=== PATIENT | female | born 1995 | race Caucasian/White ===

== ENCOUNTER 2021-07-09 14:00 | Outpatient (RCR) | payer OTHER, SELFPAY ==
--- NOTE | 2021-06-30 10:47 | STOPEVAL ---
Thank you for referring Sarai Dixon to [facility].? The patient is scheduled to be seen for therapy? 1x/week for 4 weeks. Please review, sign, date and return this plan of care KAYLIE. I agree with and certify that the following plan of care is medically necessary. 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 She reports that she even wondered if she had asthma due to the feeling of the need to catch her breath. Patient reports that occasionally, she does not feel as if she has enough air, almost gasping for air. Patient reports that she had COVID in February of 2021 and that her breathing symptoms began around that time. About one month later, at the end of March, patient developed a rapid heart rate and became very dizzy and was then hospitalized although her test results at that time were generally normal. She was sent to a lunch truck driver who diagnosed with POTS, postural orthostatis tachycardia syndrome, characterized as heart rate quickly increasing when sitting to standing, and MCAS (mast cell activation syndrome); patient reports this is like an allergic reaction to certain foods and multiple things such as things in the air and stress. She reports that food is the worse trigger fo
--- NOTE | 2021-07-17 16:09 | PCSTNOTE ---
Admitting Provider: Attending Provider: Carlos Dya MD Patient:Sarai Dixon Date of :1995 Patient has not returned for any further treatments since 07/02/2021, therefore she will be discharged at this time. Patient?s initial visit was on 06/25/2021 12:30 with complaints of air hunger and becoming short of breath when speaking. Patient returned for one treatment session for a total of two visits. The goals for instruction of breathing and respiration/phonation coordination techniques were met at first treatment session however her ability to sustain ah sound to 15 seconds could not be further assessed due to noncompliance with treatment frequency. Therapist contacted the patient the week of 07/14 due to missed visit last week with no contact to cancel, and then not being on the schedule to return. Therapist requested patient contact us to let therapist know if she requested discharge or wanted to be placed on the schedule and no contact was made. Thank you for referring this patient to [facility]. Please review, sign, date and return this discharge summary KAYLIE. I have been updated about the patient's current status and I agree with discharge from the above service at this time. Referring Physician Date
== END 2021-07-18 11:05 | disposition home or self-care (01) ==
LOC: ANHST 14:00
PROVIDERS: Visit Provider Otolaryngology
DX: J38.3 Other diseases of vocal cords (principal)
CPT/HCPCS: 92507; 92524

== ENCOUNTER 2023-05-20 08:22 | Emergency (ER) | payer OTHER, SELFPAY ==
[2023-05-20] VITALS (15 sets, daily range): BP systolic 120–157; BP diastolic 82–96; PULSE 87–138; RESP 14–29; TEMP 36.6–37.3; O2SAT 89–100
--- NOTE | ~2023-05-20 | XR_ITS ---
EXAMINATION: XR chest 2V DATE: 05/20/2023 10:27 INDICATION: Shortness of breath TECHNIQUE: PA and lateral views of the chest are obtained. COMPARISON: None available FINDINGS: There are minimal bibasilar airspace opacities. No pleural effusion or pneumothorax. The ca rdiomediastinal silhouette is normal. The visualized bones and soft tissues are unremarkable. IMPRESSION: 1. Minimal bibasilar airspace opacities, consistent with atelectasis versus pneumonia. Reviewed, dictated and finalized at location F. IMPRESSION: 1. Minimal bibasilar airspace opacities, consistent with atelectasis versus pne umonia.
--- NOTE | 2023-05-20 08:26 | ECG_ITS ---
Measurements Intervals [place] Rate: 123 P: 52 TN: 133 QRS: 59 QRSD: 87 T: 24 QT: 302 QTc: 434 Interpretive Statements SINUS TACHYCARDIA LOW QRS VOLTAGE IN PRECORDIAL LEADS BORDERLINE ST-T WAVE ABNORMALITY- ANT/INFN LEADS BASELINE WANDER- II, III, AVF ABNORMAL ECG NO PREVIOUS ECG AVAILABLE FOR COMPARISON Electronically Signed On 05-20-2023 8:36:24 CDT by Antony Adrian D.O.
--- NOTE | 2023-05-20 09:41 | ED.ARRPALP ---
HPI - Arrhythmia/Palpitations General Chief Complaint: Arrhythmia/Palpitations Stated Complaint: sob, fast HR Time Seen by Provider: 05/20/23 09:38 Source: patient Mode of arrival: ambulatory Limitations: no limitations History of Present Illness HPI narrative: Patient presents with palpitations and shortness of breath. She experiences this frequently and has had extensive workup diagnosed with POTS in March of 2021 after having COVID. Also diagnosed with mast cell activation syndrome. She has had an occasional cough the past few days which she attributed to allergies. She denies any chest pain or diaphoresis. She notes her heart rate was in the 160s home. Her last menstrual period was greater than 1 month ago but is notably irregular at baseline given PCOS. She has previously been on a beta-wild in [place] but then her heart rate experienced irregularities occasionally going low in the 40s occasionally 38 beats per minute and at other times running high thus no longer on these medications. She lost 70 lb and deemed back. She is pending an endocrinology referral/point as she had a positive ARABELLA test. She drinks a mixture of electrolytes in water daily. She has undergone wearing an event monitor once for approximately 48 hours, another time for approximately 7 days, another time for 30 days. At baseline her episodes last 5-15 minutes and they leave her fatigued and tired but she felt like symptoms were worse over the past 2 days. She has a sports writer through [facility]. PCP Dr saldivar in [place] Related Data Home Medications Medication Instructions Recorded Confirmed famotidine 20 mg tablet 20 mg PO DAILY 05/27/21 11/25/21 famotidine 20 mg tablet 20 mg PO DAILY 05/27/21 11/25/21 levalbuterol tartrate 45 2 inh inhalation Q6H 05/27/21 11/25/21 mcg/actuation aerosol inhaler montelukast 10 mg tablet 10 mg PO DAILY 05/27/21 11/25/21 cetirizine 10 mg capsule (Zyrtec) 10 mg PO DAILY PRN 11/25/21 11/25/21 buspirone 5 mg tablet mg PO 04/30/23 05/02/23 Allergies Allergy/AdvReac Type Severity Reaction Status Date / Time No Known Allergies Allergy Verified 05/20/23 08:29 [facility] Past Medical History Medical History ARABELLA positive Bruxism IBS (irritable bowel syndrome) Mast cell activation syndrome PCOS (polycystic ovarian syndrome) POTS (postural orthostatic tachycardia syndrome) Surgical History Surgical History History of colonoscopy History of esophagogastroduodenoscopy (EGD) Family History Family History Mother Lung cancer Hypertension Depression Anxiety COVID attributed to this in 2021 Sibling Depression Anxiety Social History Social History Smoking status: Never smoker Alcohol intake: never Substance use: never Exam Narrative: GENERAL: Well-appearing, well-nourished, and in no acute distress. HEAD: Normocephalic, atraumatic. EYES: Non injected, non icteric ENT: Nares clear, no rhinorrhea or epistaxis. NECK: Supple. CHEST: Clear to auscultation. No respiratory distress. HEART: Regular rate and rhythm though occasionally tachycardic. ABDOMEN: Soft, nondistended. EXTREMITIES: Normal range of motion. No edema. SKIN: Warm, dry, no rash. NEURO: No focal deficits. Alert and oriented x3. PSYCH: Normal mood and affect. Course Vital Signs Vital signs: Vital Signs Pulse Rate 129 H 05/20/23 08:28 Respiratory Rate 20 05/20/23 08:28 Blood Pressure 157/96 H 05/20/23 08:28 Pulse Oximetry 100 05/20/23 08:28 Temperature 98 F 05/20/23 12:07 Pulse Rate 93 05/20/23 12:07 Respiratory Rate 15 05/20/23 12:07 Blood Pressure 120/82 05/20/23 12:07 Pulse Oximetry 98 05/20/23 12:07 MDM - Arrhythmia/Palpitations MDM Narr
[2023-05-20] MEDS: SODIUM CHLORIDE 0.9% IV 1,000 ML 999 ML IV CONT (10:07)
[2023-05-20 10:27] LABS: Basophils Percent Auto 0.4 % (0.2-1.2); Eosinophils Percent Auto 0.3 % (0-4.4); Hematocrit 43.4 % (37.0-47.0); Hemoglobin 14.7 g/dL (12.0-15.0); Immature Granulocyte Absolute 0.02 K/mm3 (0.00-0.031); Immature Granulocyte Percent A 0.3 % (0-0.5); Lymphocytes Absolute Auto 1.09 K/mm3 (0.9-3.2); Lymphocytes Percent Auto 14.5 % (18.3-44.2); Mean Corpuscular HGB Conc 33.9 g/dl (32-36); Mean Corpuscular Hemoglobin 29.7 pg (26-34); Mean Corpuscular Volume 87.7 fl (80-100); Mean Platelet Volume 11.5 fl (7.4-10.4); Monocytes Absolute Auto 0.3 K/mm3 (0.1-0.6); Monocytes Percent Auto 4.2 % (2.6-8.5); Neutrophils Absolute Auto 6.1 K/mm3 (1.3-6.7); Neutrophils Percent Auto 80.3 % (45.5-73.1); Platelet Count Result 191 k/mm3 (150-375); Red Blood Count 4.95 M/mm3 (4.2-5.4); White Blood Count 7.5 K/mm3 (4.5-10.0)
[2023-05-20 10:32] LABS: Alanine Aminotransferase 17 U/L (6-35); Albumin Level 4.5 g/dL (3.5-5.1); Alkaline Phosphatase 111 U/L (38-126); Anion Gap 7 mmol/L (4-12); Aspartate Amino Transferase 21 U/L (14-36); Bilirubin,Total 1.5 mg/dL (0.2-1.3); Blood Urea Nitrogen 6 mg/dL (7-17); Calcium 9.4 mg/dL (8.4-10.2); Carbon Dioxide 24 mmol/L (22-30); Chloride 108 mmol/L (98-107); Estimated CRCL calculation 115 ml/min; Estimated Glomerular Filt Rate > 60; Glucose 109 mg/dL (65-110); Magnesium 2.1 mg/dL (1.6-2.3); Sodium 139 mmol/L (137-145)
[2023-05-20 10:47] LABS: D Dimer 0.29 ug/mL (<0.48)
[2023-05-20 11:06] LABS: Add Urine Microscopic? NO; Appearance Urine Clear (Clear); Bilirubin Urine Negative (Negative); Blood Urine Negative (Negative); Color Urine Yellow (Yellow); Glucose Urine UA Negative (Negative); Ketones Urine Negative (Negative); Leukocyte Esterase Ur Negative LEU/UL (Negative); Nitrate Urine Negative (Negative); Protein Urine Negative (Negative); Specific Grav Ur 1.015 (1.001-1.035); Urobilinogen Urine 0.2 mg/dL (<2.0)
[2023-05-20 11:18] LABS: Influenza A QL RT-PCR Negative (Negative); Influenza B QL RT-PCR Negative (Negative); RSV RNA, RT-PCR Negative (Negative); SARS-CoV-2 RNA PCR Negative (Negative)
== END 2023-05-20 12:15 | disposition home or self-care (01) ==
PROVIDERS: Emergency Provider Student in an Organized Health Care Education/Training Program
DX: J18.9 Pneumonia, unspecified organism (principal); G90.A Postural orthostatic tachycardia syndrome [POTS]; E28.2 Polycystic ovarian syndrome; K58.9 Irritable bowel syndrome, unspecified; D89.40 Mast cell activation, unspecified; Z86.16 Personal history of COVID-19; R00.0 Tachycardia, unspecified; R94.31 Abnormal electrocardiogram [ECG] [EKG]
CPT/HCPCS: 36415; 71046; 80053; 81003; 81025; 83735; 84443; 85025; 85380; 87637; 93005; 96360; 99283; J7030

== ENCOUNTER 2023-05-24 11:22 | Emergency (ER) | payer OTHER, SELFPAY ==
--- NOTE | ~2023-05-24 | XR_ITS ---
EXAMINATION: XR chest 2V DATE: 05/24/2023 12:37 INDICATION: Shortness of breath. TECHNIQUE: Frontal and lateral views of the chest were obtained. COMPARISON: Chest 2 views 05/20/2023 FINDINGS: There is no pneumonia, pleural effusion, or pneumothorax. The heart size is normal. IMPRESSION: 1. No acute cardiopulmonary disease. Reviewed, dictated and finalized at location A.
[2023-05-24 12:00] VITALS: BP 127/79; PULSE 94; RESP 18; TEMP 36.8; O2SAT 99
--- NOTE | 2023-05-24 12:04 | ECG_ITS ---
Measurements Intervals [place] Rate: 99 P: 46 IL: 125 QRS: 46 QRSD: 76 T: 6 QT: 298 QTc: 383 Interpretive Statements SINUS RHYTHM WITH SINUS ARRHYTHMIA NONSPECIFIC T-WAVE ABNORMALITY COMPARED TO ECG 05/20/2023 08:32:36 NO SIGNIFICANT DIFFERENCE Electronically Signed On 05-24-2023 13:19:16 CDT by Lobito Key M.D.
[2023-05-24 12:44] LABS: Basophils Percent Auto 0.5 % (0.2-1.2); Eosinophils Percent Auto 0.2 % (0-4.4); Hematocrit 42.7 % (37.0-47.0); Hemoglobin 14.7 g/dL (12.0-15.0); Immature Granulocyte Absolute 0.02 K/mm3 (0.00-0.031); Immature Granulocyte Percent A 0.3 % (0-0.5); Lymphocytes Absolute Auto 1.04 K/mm3 (0.9-3.2); Lymphocytes Percent Auto 16.2 % (18.3-44.2); Mean Corpuscular HGB Conc 34.4 g/dl (32-36); Mean Corpuscular Hemoglobin 30.2 pg (26-34); Mean Corpuscular Volume 87.7 fl (80-100); Mean Platelet Volume 11.5 fl (7.4-10.4); Monocytes Absolute Auto 0.4 K/mm3 (0.1-0.6); Monocytes Percent Auto 5.5 % (2.6-8.5); Neutrophils Percent Auto 77.3 % (45.5-73.1); Platelet Count Result 208 k/mm3 (150-375); Red Blood Count 4.87 M/mm3 (4.2-5.4); Red Cell Distribution Width 11.9 % (11.5-14.5); White Blood Count 6.4 K/mm3 (4.5-10.0)
[2023-05-24 12:53] LABS: Alanine Aminotransferase 15 U/L (6-35); Albumin Level 4.6 g/dL (3.5-5.1); Alkaline Phosphatase 118 U/L (38-126); Anion Gap 5 mmol/L (4-12); Aspartate Amino Transferase 18 U/L (14-36); Blood Urea Nitrogen 6 mg/dL (7-17); Calcium 9.6 mg/dL (8.4-10.2); Carbon Dioxide 25 mmol/L (22-30); Chloride 111 mmol/L (98-107); Estimated CRCL calculation 129 ml/min; Estimated Glomerular Filt Rate > 60; Glucose 95 mg/dL (65-110); Potassium 4.2 mmol/L (3.4-5.0); Sodium 141 mmol/L (137-145)
[2023-05-24 12:58] LABS: Appearance Urine Clear (Clear); Bacteria Urine Rare /hpf; Bilirubin Urine Negative (Negative); Blood Urine 3+ (Negative); Color Urine Yellow (Yellow); Glucose Urine UA Negative (Negative); Ketones Urine Negative (Negative); Leukocyte Esterase Ur 3+ LEU/UL (Negative); Nitrate Urine Negative (Negative); Non Pathogenic Casts 0-2; Protein Urine Negative (Negative); Specific Grav Ur 1.005 (1.001-1.035); Squamous Epithelial Cell Urine Occasional /hpf (Few); Urobilinogen Urine 0.2 mg/dL (<2.0); WBC Urine 0-5 /hpf (0-3)
[2023-05-24 12:59] LABS: Add Urine Microscopic? YES
[2023-05-24 13:21] LABS: Influenza A QL RT-PCR Negative (Negative); Influenza B QL RT-PCR Negative (Negative); RSV RNA, RT-PCR Negative (Negative); SARS-CoV-2 RNA PCR Negative (Negative)
[2023-05-24 13:50] LABS: Need Manual Microscopic Reviewed
--- NOTE | 2023-05-24 14:02 | ED.SOB ---
HPI - SOB/Dyspnea General Chief Complaint: Shortness of Breath/Dyspnea Stated Complaint: pna, sob Time Seen by Provider: 05/24/23 14:02 Focused HPI: Patient is a 27-year-old female, with past medical history of POTS, mast cell activation, who presents the ED with report of shortness of breath. Patient is seen in the ED on 05/19, diagnosed with pneumonia, started on azithromycin. Has been taking this as directed, scheduled to finish course today. Began feeling better 2 days ago, but developed worsening SOB/cough last night. SOB worse with exertion/talking. Feels excessive mucous in her throat and chest. Also reports having labile HR, states her POTS has been flared up and out of control. Also reports multiple episodes of diarrhea. She notes she is sensitive to antibiotics. Denies rectal bleeding, melena, fevers, abd pain, N/V, CP. GENERAL: Well-appearing, well-nourished, and in no acute distress. HEAD: Normocephalic, atraumatic. CHEST: Clear to auscultation. ?No respiratory distress. HEART: Tachycardic with regular rhythm.? NEURO: ?Alert and oriented x3. Patient screened in triage and initial orders placed.? ?Additional care and disposition to be based upon?diagnostic testing and treatment. Source: patient and old records reviewed Mode of arrival: ambulatory Limitations: no limitations Related Data Home Medications Medication Instructions Recorded Confirmed famotidine 20 mg tablet 20 mg PO DAILY 05/27/21 11/25/21 famotidine 20 mg tablet 20 mg PO DAILY 05/27/21 11/25/21 levalbuterol tartrate 45 2 inh inhalation Q6H 05/27/21 11/25/21 mcg/actuation aerosol inhaler montelukast 10 mg tablet 10 mg PO DAILY 05/27/21 11/25/21 cetirizine 10 mg capsule (Zyrtec) 10 mg PO DAILY PRN 11/25/21 11/25/21 buspirone 5 mg tablet mg PO 04/30/23 05/02/23 Allergies Allergy/AdvReac Type Severity Reaction Status Date / Time gadobenic acid AdvReac Palpitation Verified 05/24/23 14:48 [From contrast - MRI] s iohexol AdvReac Palpitation Verified 05/24/23 14:48 [From contrast - CT, X-RAY] s PMFSH Past Medical History Medical History ARABELLA positive Bruxism IBS (irritable bowel syndrome) Mast cell activation syndrome PCOS (polycystic ovarian syndrome) POTS (postural orthostatic tachycardia syndrome) Surgical History Surgical History History of colonoscopy History of esophagogastroduodenoscopy (EGD) Family History Family History Mother Lung cancer Hypertension Depression Anxiety COVID attributed to this in 2021 Sibling Depression Anxiety Social History Social History Smoking status: Never smoker Alcohol intake: never Substance use: never Course Vital Signs Vital signs: Vital Signs Temperature 98.2 F 05/24/23 12:00 Pulse Rate 94 05/24/23 12:00 Respiratory Rate 18 05/24/23 12:00 Blood Pressure 127/79 05/24/23 12:00 Pulse Oximetry 99 05/24/23 12:00 Oxygen Delivery Room Air 05/24/23 12:00 Temperature 98.3 F 05/24/23 17:16 Pulse Rate 110 H 05/24/23 17:16 Respiratory Rate 24 H 05/24/23 17:16 Blood Pressure 121/91 H 05/24/23 17:16 Pulse Oximetry 100 05/24/23 17:16 Oxygen Delivery Room Air 05/24/23 14:48 MDM - SOB/Dyspnea MDM Narrative Medical decision making narrative: MSE by YENNI in triage. Patient brought back to ED room, however decided to leave prior to being seen by another provider. AMA paperwork was signed. The risks of leaving against medical advice and prior to completing evaluation were discussed with patient and she voiced understanding. Recommended close follow-up with PCP. Advised she can return any time to receive evaluation. Patient ambulatory with a steady gait. Left facility in stable condition. Lab
[2023-05-24 14:10] VITALS: BP 136/88; PULSE 122; RESP 19; O2SAT 100
[2023-05-24 14:20] LABS: Magnesium 2.1 mg/dL (1.6-2.3)
[2023-05-24 14:48] VITALS: BP 132/88; PULSE 104; RESP 20; O2SAT 99
[2023-05-24 14:51] VITALS: PULSE 108
[2023-05-24 16:21] VITALS: BP 120/78; PULSE 108; RESP 17; O2SAT 99
[2023-05-24 17:16] VITALS: BP 121/91; PULSE 110; RESP 24; TEMP 36.8; O2SAT 100
== END 2023-05-24 17:19 | disposition left against medical advice (07) ==
LOC: ANHED 17:11
PROVIDERS: Physician Assistant; Emergency Provider Physician Assistant
DX: J18.9 Pneumonia, unspecified organism (principal); R06.00 Dyspnea, unspecified; R19.7 Diarrhea, unspecified; R00.0 Tachycardia, unspecified; Z20.822 Contact with and (suspected) exposure to COVID-19; G90.A Postural orthostatic tachycardia syndrome [POTS]; D89.40 Mast cell activation, unspecified; K58.9 Irritable bowel syndrome, unspecified; E28.2 Polycystic ovarian syndrome; R94.31 Abnormal electrocardiogram [ECG] [EKG]
CPT/HCPCS: 36415; 71046; 80053; 81001; 81025; 83735; 85025; 87637; 93005; 99284

== ENCOUNTER 2024-11-17 10:32 | Outpatient (RCR) | payer OTHER, SELFPAY ==
--- NOTE | 2024-11-17 12:23 | OPREHPOC ---
Outpatient Therapy Plan of Care This is a Multidisciplinary Plan of Care that may contain components documented by all disciplines (PT, OT, and ST.) PT Problem 1 PT Problem #1 Knowledge Deficit PT Goal 1 Goal / Goal Update Pt. will demo good understanding of diagnosis and prognosis, HEPs. Target Visit 10 PT Problem 2 PT Problem #2 Impaired Balance PT Goal 1 Goal / Goal Update Pt will report reduced orthostatic intolerance and improve dynamic standing balance to Good (accepts moderate challenges and able to maintain balance while picking objects off the floor) Target Visit 12 PT Problem 3 PT Problem #3 Impaired Strength PT Goal 1 Goal / Goal Update Pt will demo SLS x 30 seconds each LE with improved stability on various surfaces without BUE support to improve safety with ambulation on various surfaces. Target Visit 12
--- NOTE | 2024-11-17 12:23 | PTOPEVAL1 ---
Assessment and note entered by Eleonora Santos, PT Evaluation Information Assessment Status Evaluation Diagnosis G90.A ICD-10 Condition Codes (PT) Weakness R53.1,Dizziness and Giddiness R42 Onset 2023 Subjective Information Pt reports currently feeling so deconditioned and constant dizziness. Dizziness has waves in intensity but is always there, states was working from home Mar 2023 - just a few months ago, sitting most of the time. she got diagnosed with POTS (Postural Orthostatic Tachycardia Syndrome) Mar 2021 after a COVID infection. Symptoms started last year but she notice more of the weakness and dizziness recently, stairs is very difficult, this condition affect her ability to hold a job, socialize, being active. When a room has a lot of distractions, this increases symptoms. 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 Before 2023, I was normal. 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 Now I cant even do that anymore . Reported Pain Level Pain Score 0: Self Report Assessment PT Clinical Summary Pt presents to therapy with c/o general weakness, joint pains, constant dizziness. She had a h/o COVID 19 infection Feb 2023 and was diagnosed with Postural Orthostatic Tachycardia Syndrome (POTS) Mar 2023. Her symptoms greatly impact her daily ADLs, IADLs and community navigation and overall quality of life. She may benefit from skilled PT to improve general strength, postural training, vestibular rehab and aquatic therapy to reduce symptoms and improve functional mobility, balance confidence and safety. Plan of Care Interventions Aquatic Therapy,Check Out for Orthotic/Prosthetic, Manual Therapy,Neuro Re-education,Patient/ Caregiver Education,Therapeutic Activities, Therapeutic Exercise,Other Other Interventions vestibular rehab PT Services Indicated Yes Treatment Frequency and 2x/wk x 14 sessions Duration These treatments will address the objective and functional deficits as defined above. The patient will be advanced safely and appropriately in order for the patient to progress towards his/her prior level of function. Additional exercises will be introduced and as well as a comprehensive home exercise program upon discharge, if needed, ?to ensure carryover of functional gains achieved in the clinic. This treatment plan has been reviewed and agreement upon by the patient.
== END 2025-02-15 23:59 | disposition home or self-care (01) ==
LOC: ANHPT 10:32
DX: G90.A Postural orthostatic tachycardia syndrome [POTS] (principal)
CPT/HCPCS: 97162; 97530